=== PATIENT | female | born 1955 | race Caucasian/White ===

== ENCOUNTER 2016-10-10 13:31 | Emergency (ER) | payer OTHER, MEDICAID ==
[2016-10-10 13:36] VITALS: TEMP 98.2
--- NOTE | 2016-10-10 14:01 | EDPHY ---
H & P Stated Complaint: N/V HPI/ROS: HPI CHIEF COMPLAINT: Cough, congestion, upper respiratory tract infection, nausea, vomiting HISTORY OF PRESENT ILLNESS: This patient very pleasant 61-year-old female, significant past medical history for breast cancer status post bilateral mastectomy, lymph node dissection, migraine headaches and depression, presents to the emergency room with 4 days of upper respiratory tract infection type symptoms. She tells me that for 4 days she has had a cough, it has progressively gotten worse with productive sputum yellow green at times. She states she has had chills and a fever yesterday but no recorded temperature. Today she states her coughing got worse and she had a associated nausea and vomiting with this. Denies diarrhea. Denies significant abdominal pain. Past Medical History: Breast cancer, migraine headaches, depression Past Surgical History: Bilateral mastectomy, lymph node dissection Social History: Denies daily use of drugs, alcohol, tobacco products Family History: Noncontributory ROS REVIEW OF SYSTEMS: A comprehensive 10 point review of systems is otherwise negative aside from elements mentioned in the history of present illness. Exam Constitutional triage nursing summary reviewed, vital signs reviewed, awake/ alert. Eyes normal conjunctivae and sclera, EOMI, PERRLA. HENT normal inspection, atraumatic, moist mucus membranes, no epistaxis, neck supple/ no meningismus, no raccoon eyes. Respiratory clear to auscultation bilaterally, normal breath sounds, no respiratory distress, no wheezing. Cardiovascular rate normal, regular rhythm, no murmur, no edema, distal pulses normal. Gastrointestinal soft, non-tender, no rebound, no guarding, normal bowel sounds, no distension, no pulsatile mass. Genitourinary no CVA tenderness. Musculoskeletal no midline vertebral tenderness, full range of motion, no calf swelling, no tenderness of extremities, no meningismus, good pulses, neurovascularly intact. Skin pink, warm, & dry, no rash, skin atraumatic. Neurologic awake, alert and oriented x 3, AAOx3, moves all 4 extremities equally, motor intact, sensory intact, CN II-XII intact, normal cerebellar, normal vision, normal speech. Psychiatric normal mood/affect. Heme/Lymph/Immune no lymphadenopathy. Differential Diagnosis: includes but is not limited to in a particular order upper respiratory tract infection, viral syndrome, pneumonia, bronchitis, electrolyte abnormality, dehydration, influenza Medical Decision Making: this patient had an IV established obtain basic blood work, patient had a two view chest x-ray to rule pneumonia, she will receive a DuoNeb breathing treatment. Check basic blood work. Re-evaluation: ED x-ray chest two view: negative for acute cardiopulmonary disease specifically no pneumonia. Image interpreted by myself. [id number]; re-evaluation at this time: patient is resting comfortably feels much better after DuoNeb breathing treatment, IV fluids. She denies chest pain or shortness of breath or abdominal pain at this time. No vomiting. Vital signs reviewed. Blood work reviewed. X-ray reviewed. She is comfortable being discharged home will place her on a guaifenesin for cough, and the congestion, also albuterol, and azithromycin. She does understand she has worsening symptoms to return to the emergency room. Source: Patient - Personal History Current Tetanus/Diphtheria Vaccine: Yes Current Tetanus Diphtheria and Acellular Pertussis (TDAP): Yes Tetanus Vaccine Date: 2012 - Medical/Surgical History Hx Asthma: Yes Hx Chronic Respiratory Disease: No Hx Diabetes: No Hx Cardiac Disease: No Hx Renal Disease: No Hx Cirrhosis: No Hx Alcoholism: No Hx HIV/AIDS: No Hx Splenectomy or Spleen Trauma: No Other PMH: breast cancer (chemo/radiation), anxiety, bilateral mastectomy, migraines, cholycystectomy, orif ankle, tbi > 10 years , asthma. - Social History Smoking Status: Never smoked Constitutional: Initial Vital Signs Temperature (C) 36.8 C 10/10/16 13:34 Heart Rate 81 10/10/16 13:34 Respiratory Rate 14 10/10/16 13:34 Blood Pressure 136/96 H 10/10/16 13:34 O2 Sat (%) 92 10/10/16 13:34 O2 Delivery Mode Room Air Allergies/Adverse Reactions: latex Allergy (Unknown, Verified 11/22/15 02:25) SKIN BLISTERS AND PEELS OFF POLLENS Allergy (Mild, Uncoded 11/22/15 02:25) WATERY EYES/COUGHING/SNEEZING/NASAL CONGESTION cats Allergy (Uncoded 11/22/15 02:25) EYES WATERY,CONGESTION SMOKE/PAINT FUMES Allergy (Uncoded 11/22/15 02:25) TRIGGERS ASTHMA Home Medications: Medication Instructions Recorded Zolpidem Tartrate [Ambien 10 mg] 10 mg PO HS PRN #5 tab 08/10/13 Albuterol 03/31/14 Albuterol [Proventil Inhaler HFA 2 puffs IH Q4 PRN #1 mdi 03/31/14 (*)] Anastrozole 03/31/14 Prochlorperazine Maleate 10 mg PO BID PRN #10 tablet 10/28/14 [Compazine 10mg (RX)] Effexor 02/20/15 Venlafaxine Xr [Effexor Xr] 75 mg PO DAILY #7 cap 10/02/15 Hydrocodone Bit/Homatropine 1 each PO Q6-8PRN #10 tablet 11/16/15 [HYCODAN TABLET] Hydrocodone Bit/Homatropine 1 each PO Q6-8PRN PRN #11 tablet 11/17/15 [HYCODAN TABLET] predniSONE [prednisone 20mg (RX)] 40 mg PO DAILY 5 Days 11/17/15 AZITHROMYCIN [Z-PACK] 250 mg PO DAILY #6 tab 10/10/16 Albuterol [Proventil Inhaler HFA 1 - 2 puffs IH Q4H #1 mdi 10/10/16 (*)] Guaifenesin [Guaifenesin ER] 600 mg PO BID #14 tab.er.12h 10/10/16 predniSONE 60 mg PO DAILY #15 tab 10/10/16 Medical Decision Making - Data Points Laboratory Results: Laboratory Results 10/10/16 14:12 10/10/16 14:12 10/10/16 14:12 WBC 8.86 10^3/uL (3.80-9.50) RBC 4.63 10^6/uL (4.18-5.33) Hgb 14.9 g/dL (12.6-16.3) Hct 42.3 % (38.0-47.0) MCV 91.4 fL (81.5-99.8) MCH 32.2 pg (27.9-34.1) MCHC 35.2 g/dL (32.4-36.7) RDW 12.7 % (11.5-15.2) Plt Count 297 10^3/uL (150-400) MPV 8.9 fL (8.7-11.7) Neut % (Auto) 67.5 % (39.3-74.2) Lymph % (Auto) 24.6 % (15.0-45.0) Wagoner % (Auto) 5.3 % (4.5-13.0) Eos % (Auto) 1.5 % (0.6-7.6) Baso % (Auto) 0.6 % (0.3-1.7) Nucleat RBC Rel Count 0.0 % (0.0-0.2) Absolute Neuts (auto) 5.99 10^3/uL (1.70-6.50) Absolute Lymphs (auto) 2.18 10^3/uL (1.00-3.00) Absolute Monos (auto) 0.47 10^3/uL (0.30-0.80) Absolute Eos (auto) 0.13 10^3/uL (0.03-0.40) Absolute Basos (auto) 0.05 10^3/uL (0.02-0.10) Absolute Nucleated RBC 0.00 10^3/uL (0-0.01) Immature Gran % 0.5 % (0.0-1.1) Immature Gran # 0.04 10^3/uL (0.00-0.10) Sodium 139 mEq/L (134-144) Potassium 4.4 mEq/L (3.5-5.2) Chloride 100 mEq/L (97-110) Carbon Dioxide 28 mEq/l (22-31) Anion Gap 11 mEq/L (8-16) BUN 16 mg/dL (7-23) Creatinine 0.8 mg/dL (0.6-1.0) Estimated GFR > 60 Glucose 99 mg/dL (70-100) Calcium 9.4 mg/dL (8.5-10.4) Total Bilirubin 0.7 mg/dL (0.1-1.4) Conjugated Bilirubin 0.5 mg/dL (0.0-0.5) Unconjugated Bilirubin 0.2 mg/dL (0.0-1.1) AST 20 IU/L (14-46) ALT 35 IU/L (9-52) Alkaline Phosphatase 96 IU/L (38-126) Total Protein 7.4 g/dL (6.3-8.2) Albumin 4.5 g/dL (3.5-5.0) Lipase 90.0 IU/L (23-300) Medications Given: Discontinued Medications Albuterol/Ipratropium (Duoneb) 3 ml IH EDNOW ONE Stop: 10/10/16 14:08 Last Admin: 10/10/16 14:20 Dose: 3 ml Sodium Chloride (Ns) 1,000 mls @ 0 mls/hr IV ONCE ONE PRN Reason: Wide Open Stop: 10/10/16 14:07 Last Admin: 10/10/16 14:26 Dose: 1,000 mls Ondansetron HCl (Zofran) 4 mg IVP EDNOW ONE Stop: 10/10/16 14:07 Last Admin: 10/10/16 14:26 Dose: 4 mg Departure - Departure Disposition: Home, Routine, Self-Care Clinical Impression: URI (upper respiratory infection) Qualifiers: URI type: unspecified viral URI Qualifier Code: (J06.9) Acute upper respiratory infection, unspecified Condition: Good Instructions: Upper Respiratory Infection (ED) Additional Instructions: 1. Stay well-hydrated 2. Return to the emergency room if you have any worsening symptoms questions or concerns 3. Return emergency room if develops worsening cough, shortness of breath, high fever. Referrals: [place],. [Primary Care Provider] - As per Instructions Prescriptions: Guaifenesin [Guaifenesin ER] 600 mg PO BID #14 tab.er.12h Albuterol [Proventil Inhaler HFA (*)] 1 - 2 puffs IH Q4H #1 mdi AZITHROMYCIN [Z-PACK] 250 mg PO DAILY #6 tab predniSONE 60 mg PO DAILY #15 tab
[2016-10-10] MEDS ORDERED: NS 1,000 ML IV ONE (14:06)
[2016-10-10] MEDS ORDERED: ONDANSETRON 4 MG/2 ML VIAL IVP ONE (14:06)
[2016-10-10] MEDS ORDERED: IPRATROPIUM/ALBUTEROL 3 ML DEYVIAL ONE (14:06)
[2016-10-10] MEDS ORDERED: IPRATROPIUM/ALBUTEROL 3 ML DEYVIAL IH ONE (14:07)
[2016-10-10 14:24] LABS: % IMMATURE GRANULYOCYTES 0.5 % (0.0-1.1); ABSOLUTE IMMATURE GRANULOCYTES 0.04 10^3/uL (0.00-0.10); ADD DIFF? NO; ADD MORPH? NO; ADD SCAN? NO; ATYPICAL LYMPHOCYTE FLAG 20 (0-99); FRAGMENT RBC FLAG 0 (0-99); HEMATOCRIT 42.3 % (38.0-47.0); HEMOGLOBIN 14.9 g/dL (12.6-16.3); LEFT SHIFT FLG 0 (0-99); LIPEMIA HEMOLYSIS FLAG 90 (0-99); MEAN CELL HEMOGLOBIN 32.2 pg (27.9-34.1); MEAN CELL HEMOGLOBIN CONCENTR. 35.2 g/dL (32.4-36.7); MEAN CELL VOLUME 91.4 fL (81.5-99.8); MEAN PLATELET VOLUME 8.9 fL (8.7-11.7); PLATELET CLUMPS FLAG 10 (0-99); PLATELET COUNT 297 10^3/uL (150-400); RED BLOOD CELL COUNT 4.63 10^6/uL (4.18-5.33); RED CELL DISTRIBUTION WIDTH 12.7 % (11.5-15.2)
[2016-10-10 14:38] LABS: ALANINE AMINOTRANSFERASE 35 IU/L (9-52); ALBUMIN 4.5 g/dL (3.5-5.0); ALKALINE PHOSPHATASE 96 IU/L (38-126); ANION GAP 11 mEq/L (8-16); ASPARTATE AMINOTRANSFERASE 20 IU/L (14-46); BILIRUBIN,TOTAL 0.7 mg/dL (0.1-1.4); BILIRUBIN-CONJUGATED 0.5 mg/dL (0.0-0.5); BILIRUBIN-UNCONJUGATED 0.2 mg/dL (0.0-1.1); CALCIUM 9.4 mg/dL (8.5-10.4); CARBON DIOXIDE 28 mEq/l (22-31); CHLORIDE 100 mEq/L (97-110); CREATININE 0.8 mg/dL (0.6-1.0); GLOMERULAR FILTRATION RATE > 60; GLUCOSE 99 mg/dL (70-100); POTASSIUM 4.4 mEq/L (3.5-5.2); SODIUM 139 mEq/L (134-144); TOTAL PROTEIN 7.4 g/dL (6.3-8.2)
--- NOTE | 2016-10-10 15:07 | DX ---
PA and Lateral Chest October 10, 2016 1404 hours Clinical Indications: Abdominal pain, nausea, and vomiting. Comparison: November 2015. Findings: The lungs are clear, and no masses are found. The heart and pulmonary vessels are normal. There are no pleural effusions and no pneumothorax. The bones are unremarkable for this age. Uncha nged clips again are seen in the axilla and in the anterior chest. Surgical clips are noted in the ri ght upper quadrant. Impression: No acute cardiopulmonary process.
[2016-10-10 15:50] VITALS: BP 135/78; PULSE 78; RESP 16; O2SAT 94
== END 2016-10-10 15:49 | disposition home or self-care (01) ==
DX: J06.9 Acute upper respiratory infection, unspecified (principal); J45.909 Unspecified asthma, uncomplicated; Z85.3 Personal history of malignant neoplasm of breast; Z91.040 Latex allergy status
CPT/HCPCS: 71020; 96361; 96374; 99284; J2405

== ENCOUNTER → 2017-02-24 | Outpatient (CLI) | payer OTHER, MEDICAID | LOC: FIMAGING 13:41 | PROVIDERS: ATTEND Internal Medicine Hematology & Oncology | DX: Z13.820 Encounter for screening for osteoporosis (principal); M85.80 Other specified disorders of bone density and structure, unspecified site; Z78.0 Asymptomatic menopausal state; Z85.3 Personal history of malignant neoplasm of breast; Z87.81 Personal history of (healed) traumatic fracture ==

== ENCOUNTER 2017-05-13 19:08 | Emergency (ER) | payer OTHER, MEDICAID ==
[2017-05-13 19:16] VITALS: RESP 16; TEMP 99.1
[2017-05-13] MEDS ORDERED: RANITIDINE 50 MG/2 ML VIAL IVP ONE (19:35)
[2017-05-13] MEDS ORDERED: methylPREDNISolone SOD SUCC 125 MG/2 ML VIAL IVP ONE (19:35)
--- NOTE | 2017-05-13 19:39 | EDPHY ---
H & P Stated Complaint: c/o body wide itching/rash, thinks it could be related to smoking crack Time Seen by Provider: 05/13/17 19:26 HPI/ROS: CHIEF COMPLAINT: Diffuse itching after smoking crack cocaine HISTORY OF PRESENT ILLNESS: 61-year-old female presents to the ER via private vehicle complaining of 2 days of diffuse itching after smoking crack cocaine x2. No chest pain no back pain. No history of kidney disease. no dyspnea. No wheezing. No back pain. No urinary complaints. No dysphagia or odynophagia. PRIMARY CARE PROVIDER: the [facility] REVIEW OF SYSTEMS: A ten point review of systems was performed and is negative with the exception of the items mentioned in the HPI PAST MEDICAL & SURGICAL HISTORY: Breast cancer SOCIAL HISTORY:recent crack cocaine use PHYSICAL EXAM (Prior to examination, patient consented to physical exam, hands were washed and my usual and customary physical exam procedures followed) 1) GENERAL: Well-developed, well-nourished, alert and oriented. Appears to be in no acute distress. 2) HEAD: Normocephalic, atraumatic 3) HEENT: Pupils equal, round, reactive to light bilaterally. Sclera anicteric. No injection Nasopharynx, oropharynx, clear, no lesions. Ears bilaterally with normal tympanic membranes. 4) NECK: Full range of motion, no meningeal signs. 5) LUNGS: Clear auscultation bilaterally, no wheezes, no rhonchi, no retractions. 6) HEART: Regular rate and rhythm, no murmur, no heave, no gallop. 7) ABDOMEN: No guarding, no rebound, no focal tenderness, negative McBurney's, 8) MUSCULOSKELETAL: Moving all extremities, no focal areas of tenderness, no obvious trauma. No peripheral edema or discoloration. 9) BACK: No CVA tenderness, no midline vertebral tenderness, no fluctuance, no step-off, no obvious trauma, no visual or palpable abnormality. 10) SKIN: Diffuse in the patient's chest arms legs she has multiple excoriated areas with no signs of cellulitis or superinfection. No jaundice 11) Psychiatric: Patient is oriented X 3, there is no agitation. DIFFERENTIAL DIAGNOSIS: in no particular order including but not limited to urticaria, elevated blood urea nitrogen, anaphylaxis, Cox-Milton - Personal History Tetanus Vaccine Date: 2012 - Medical/Surgical History Hx Asthma: Yes Hx Chronic Respiratory Disease: No Hx Diabetes: No Hx Cardiac Disease: No Hx Renal Disease: No Hx Cirrhosis: No Hx Alcoholism: No Hx HIV/AIDS: No Hx Splenectomy or Spleen Trauma: No Other PMH: breast cancer (chemo/radiation), anxiety, bilateral mastectomy, migraines, cholycystectomy, orif ankle, tbi > 10 years , asthma. - Social History Smoking Status: Never smoked Constitutional: Initial Vital Signs Temperature (C) 37.3 C 05/13/17 19:12 Heart Rate 75 05/13/17 19:12 Respiratory Rate 16 05/13/17 19:12 Blood Pressure 128/74 H 05/13/17 19:12 O2 Sat (%) 93 05/13/17 19:12 O2 Delivery Mode Room Air Allergies/Adverse Reactions: latex Allergy (Unknown, Verified 05/13/17 19:16) SKIN BLISTERS AND PEELS OFF POLLENS Allergy (Mild, Uncoded 11/22/15 02:25) WATERY EYES/COUGHING/SNEEZING/NASAL CONGESTION cats Allergy (Uncoded 11/22/15 02:25) EYES WATERY,CONGESTION SMOKE/PAINT FUMES Allergy (Uncoded 11/22/15 02:25) TRIGGERS ASTHMA Home Medications: Medication Instructions Recorded Zolpidem Tartrate [Ambien 10 mg] 10 mg PO HS PRN #5 tab 08/10/13 Anastrozole 03/31/14 Effexor 02/20/15 Venlafaxine Xr [Effexor Xr] 75 mg PO DAILY #7 cap 10/02/15 Albuterol [Proventil Inhaler HFA 1 - 2 puffs IH Q4H #1 mdi 10/10/16 (*)] Albuterol [Proventil Inhaler HFA 1 - 2 puffs IH Q4PRN PRN #1 mdi 05/13/17 (*)] predniSONE [Prednisone] 20 mg PO DAILY #9 tablet 05/13/17 Medical Decision Making ED Course/Re-evaluation: Patient has been re-evaluated with serial examinations. Doubt anaphylaxis. Lungs are clear bilaterally. She has normal BUN, normal creatinine, no jaundice. She has had some improvement in symptoms with IV Benadryl, ranitidine , Solu-Medrol. I discussed case with secondary supervising physician Dr. Simmons in the ER. Plan will be discharge home. We discussed supportive therapy such as cool baths, oatmeal soaks and similar. Definitely if she develops new or worsening symptoms to return to ER immediately for re- evaluation. I am starting her on steroids for 3 days. Her lungs are clear bilaterally, maintain normal saturations. Ofe not think that chest imaging currently indicated. Recommend avoiding crack cocaine use in the future. Patient requests also refill of her albuterol meter dose inhaler unrelated to her presenting symptoms - Data Points Laboratory Results: Laboratory Results 05/13/17 19:40 05/13/17 19:40 05/13/17 05/13/17 19:40 19:40 WBC 6.29 10^3/uL 10^3/uL (3.80-9.50) RBC 4.19 10^6/uL 10^6/uL (4.18-5.33) Hgb 13.4 g/dL g/dL (12.6-16.3) Hct 39.0 % % (38.0-47.0) MCV 93.1 fL fL (81.5-99.8) MCH 32.0 pg pg (27.9-34.1) MCHC 34.4 g/dL g/dL (32.4-36.7) RDW 13.2 % % (11.5-15.2) Plt Count 285 10^3/uL 10^3/uL (150-400) MPV 9.7 fL fL (8.7-11.7) Neut % (Auto) 54.3 % % (39.3-74.2) Lymph % (Auto) 31.2 % % (15.0-45.0) Archer % (Auto) 7.6 % % (4.5-13.0) Eos % (Auto) 5.9 % % (0.6-7.6) Baso % (Auto) 0.8 % % (0.3-1.7) Nucleat RBC Rel Count 0.0 % % (0.0-0.2) Absolute Neuts (auto) 3.42 10^3/uL 10^3/uL (1.70-6.50) Absolute Lymphs (auto) 1.96 10^3/uL 10^3/uL (1.00-3.00) Absolute Monos (auto) 0.48 10^3/uL 10^3/uL (0.30-0.80) Absolute Eos (auto) 0.37 10^3/uL 10^3/uL (0.03-0.40) Absolute Basos (auto) 0.05 10^3/uL 10^3/uL (0.02-0.10) Absolute Nucleated RBC 0.00 10^3/uL 10^3/uL (0-0.01) Immature Gran % 0.2 % % (0.0-1.1) Immature Gran # 0.01 10^3/uL 10^3/uL (0.00-0.10) Sodium 141 mEq/L mEq/L (134-144) Potassium 3.3 mEq/L L mEq/L (3.5-5.2) Chloride 103 mEq/L mEq/L (97-110) Carbon Dioxide 25 mEq/l mEq/l (22-31) Anion Gap 13 mEq/L mEq/L (8-16) BUN 14 mg/dL mg/dL (7-23) Creatinine 0.9 mg/dL mg/dL (0.6-1.0) Estimated GFR > 60 Glucose 96 mg/dL mg/dL (70-100) Calcium 9.3 mg/dL mg/dL (8.5-10.4) Medications Given: Discontinued Medications Diphenhydramine HCl (Benadryl Injection) 50 mg IVP EDNOW ONE Stop: 05/13/17 19:36 Last Admin: 05/13/17 19:45 Dose: 25 mg Methylprednisolone Sodium Succinate (Solu-Medrol) 125 mg IVP EDNOW ONE Stop: 05/13/17 19:36 Last Admin: 05/13/17 19:45 Dose: 125 mg Ranitidine HCl (Zantac) 50 mg IVP EDNOW ONE Stop: 05/13/17 19:36 Last Admin: 05/13/17 19:45 Dose: 50 mg Departure - Departure Disposition: Home, Routine, Self-Care Clinical Impression: Urticaria, Itching Condition: Good Instructions: Itchy Skin (ED) Additional Instructions: Please avoid crack cocaine in the future. Call 911 if you develop difficulty breathing, chest pain, worsening symptoms or any other symptoms that concern you. Referrals: [facility] [Other] - 05/15/17 Prescriptions: Albuterol [Proventil Inhaler HFA (*)] 1 - 2 puffs IH Q4PRN PRN #1 mdi PRN Reason: Cough, Moderate predniSONE [Prednisone] 20 mg PO DAILY #9 tablet
[2017-05-13 20:19] LABS: % IMMATURE GRANULYOCYTES 0.2 % (0.0-1.1); ABSOLUTE IMMATURE GRANULOCYTES 0.01 10^3/uL (0.00-0.10); ADD DIFF? NO; ADD MORPH? NO; ADD SCAN? NO; ATYPICAL LYMPHOCYTE FLAG 10 (0-99); FRAGMENT RBC FLAG 0 (0-99); HEMOGLOBIN 13.4 g/dL (12.6-16.3); LEFT SHIFT FLG 0 (0-99); LIPEMIA HEMOLYSIS FLAG 90 (0-99); MEAN CELL HEMOGLOBIN CONCENTR. 34.4 g/dL (32.4-36.7); MEAN CELL VOLUME 93.1 fL (81.5-99.8); MEAN PLATELET VOLUME 9.7 fL (8.7-11.7); PLATELET CLUMPS FLAG 10 (0-99); PLATELET COUNT 285 10^3/uL (150-400); RED BLOOD CELL COUNT 4.19 10^6/uL (4.18-5.33); RED CELL DISTRIBUTION WIDTH 13.2 % (11.5-15.2)
[2017-05-13 20:24] LABS: ANION GAP 13 mEq/L (8-16); CALCIUM 9.3 mg/dL (8.5-10.4); CARBON DIOXIDE 25 mEq/l (22-31); CHLORIDE 103 mEq/L (97-110); CREATININE 0.9 mg/dL (0.6-1.0); GLOMERULAR FILTRATION RATE > 60; GLUCOSE 96 mg/dL (70-100); POTASSIUM 3.3 mEq/L (3.5-5.2); SODIUM 141 mEq/L (134-144)
[2017-05-13 21:37] VITALS: BP 120/69; PULSE 68; O2SAT 92
== END 2017-05-13 21:36 | disposition home or self-care (01) ==
DX: L50.9 Urticaria, unspecified (principal); J45.909 Unspecified asthma, uncomplicated; Z85.3 Personal history of malignant neoplasm of breast; Z91.040 Latex allergy status
CPT/HCPCS: 96374; 96375; 99284; J1200; J2780

== ENCOUNTER 2017-10-04 13:55 | Emergency (ER) | payer OTHER, MEDICAID ==
[2017-10-04 14:13] VITALS: BP 127/80; PULSE 77; RESP 16; TEMP 98.6; O2SAT 93
--- NOTE | 2017-10-04 14:57 | EDPHY ---
H & P Time Seen by Provider: 10/04/17 14:52 HPI/ROS: Chief complaint. Cough, fever HPI. 62-year-old female with 3-4 day history of cough, low-grade fever, achiness. She says her cough is productive yellow sputum. She had diarrhea at onset but this is better. She had decreased appetite but now hungry. She has been eating Cheetos as her 1st meal without nausea or vomiting. No travel or known exposure. She has a history of breast cancer in the past but this is historical there is no recent chemotherapy or radiation. She also has a history of asthma and is out of her inhaler. ROS Constitutional. Fever Eyes. no problems with vision ENT. no sore throat, no nasal drainage Cardiovascular. no chest pain Respiratory. Cough Abdominal. Abdominal pain. Diarrhea at the beginning now resolved. . no problems urinating MS. Achiness Skin. no rash Lymph. no swollen glands Neuro. no headache, no dizziness, no difficulty walking or with speech Past Medical/Surgical History: Asthma, breast cancer, mastectomy, anxiety Social History: Single, nonsmoker, no alcohol Smoking Status: Never smoked Physical Exam: General Appearance: Alert well-developed female mild distress vital signs are stable Eyes: Pupils equal and round no pallor or injection. ENT, tympanic membranes are normal. Pharynx slightly injected without exudate. Mucous membranes are moist. Respiratory: No retractions. Mild inspiratory expiratory rhonchi. Cardiovascular: Regular rate and rhythm. Gastrointestinal: Abdomen is soft and nontender, no masses, bowel sounds normal. Neurological: Awake and alert, sensory and motor exams grossly normal. Skin: Warm and dry, no rashes. Musculoskeletal: Neck is supple nontender. Extremities symmetrical, full range of motion. Psychiatric: Patient is oriented X 3, there is no agitation. Constitutional: Initial Vital Signs Temperature (C) 37 C 10/04/17 14:10 Heart Rate 77 10/04/17 14:10 Respiratory Rate 16 10/04/17 14:10 Blood Pressure 127/80 H 10/04/17 14:10 O2 Sat (%) 93 10/04/17 14:10 O2 Delivery Mode Room Air Allergies/Adverse Reactions: latex Allergy (Unknown, Verified 10/04/17 14:08) SKIN BLISTERS AND PEELS OFF POLLENS Allergy (Mild, Uncoded 10/04/17 14:08) WATERY EYES/COUGHING/SNEEZING/NASAL CONGESTION cats Allergy (Uncoded 10/04/17 14:08) EYES WATERY,CONGESTION SMOKE/PAINT FUMES Allergy (Uncoded 10/04/17 14:08) TRIGGERS ASTHMA Home Medications: Medication Instructions Recorded Zolpidem Tartrate [Ambien 10 mg] 10 mg PO HS PRN #5 tab 08/10/13 Anastrozole 03/31/14 Effexor 02/20/15 Venlafaxine Xr [Effexor Xr] 75 mg PO DAILY #7 cap 10/02/15 Albuterol [Proventil Inhaler HFA 1 - 2 puffs IH Q4PRN PRN #1 mdi 05/13/17 (*)] Albuterol Hfa Anes Only [Proair 2 puffs IH QID PRN #1 mdi 10/04/17 Hfa Icu (*)] Azithromycin [Zithromax] 250 mg PO DAILY #6 tab 10/04/17 Ondansetron Odt [Zofran Odt] 4 mg PO Q4PRN PRN #4 tab 10/04/17 Medical Decision Making Procedures: IV normal saline Flu swab ED Course/Re-evaluation: Flu is negative. On re-evaluation at 3:45 p.m. patient is stable. She requests of breathing treatment. She asked for something for nausea. She is given Zofran. She will be given A DuoNeb updraft. Patient and I discussed lab and imaging results. We discussed treatment plan including criteria for return importance of follow-up further evaluation. She expresses understanding and agreement Differential Diagnosis: I considered influenza, bronchitis, pneumonia - Data Points Laboratory Results: 10/04/17 14:45 Nasal Influenza A PCR NEGATIVE FOR FLU A (NEGATIVE) Nasal Influenza B PCR NEGATIVE FOR FLU B (NEGATIVE) Departure - Departure Disposition: Home, Routine, Self-Care Clinical Impression: Acute bronchitis Qualifiers: Bronchitis organism: unspecified organism Qualified Code(s): J20.9 - Acute bronchitis, unspecified Condition: Good Instructions: Acute Bronchitis (ED) Additional Instructions: Frequent, small sips fluids well nauseated. Zofran if needed for nausea. Gradual diet advancement. Proventil inhaler use 2 puffs with every 4-6 hours to help with cough and breathing. Tylenol 1000 mg every 4-6 hours, ibuprofen 600 mg every 6 hr as needed for fever and achiness. Return for worsening symptoms. Recheck in 2-3 days if not improving Referrals: Zachary So MD [Primary Care Provider] - 2-3 days, if not improved Prescriptions: Albuterol Hfa Anes Only [Proair Hfa Icu (*)] 2 puffs IH QID PRN #1 mdi PRN Reason: Short Of Breath/Dyspnea Azithromycin [Zithromax] 250 mg PO DAILY #6 tab Ondansetron Odt [Zofran Odt] 4 mg PO Q4PRN PRN #4 tab PRN Reason: Nausea/Vomiting, Use 1st
[2017-10-04] MEDS ORDERED: IPRATROPIUM/ALBUTEROL 3 ML DEYVIAL IH ONE (15:57)
[2017-10-04] MEDS ORDERED: ONDANSETRON DISINTEGRATING 4 MG TAB PO ONE (15:57)
== END 2017-10-04 16:34 | disposition home or self-care (01) ==
DX: J20.9 Acute bronchitis, unspecified (principal); J45.909 Unspecified asthma, uncomplicated; Z85.3 Personal history of malignant neoplasm of breast; Z91.040 Latex allergy status

== ENCOUNTER 2018-11-06 13:26 | Emergency (ER) | payer OTHER, MEDICAID ==
[2018-11-06 13:32] VITALS: BP 130/85
--- NOTE | 2018-11-06 13:49 | EDPHY ---
General Time Seen by Provider: 11/06/18 13:49 Narrative: CLINICAL IMPRESSION: Right middle finger crush injury ASSESSMENT/PLAN: Patient is a 63-year-old female with a history of anxiety, depression and narcotic dependence who presents with complaint of right middle finger pain after slamming and a doorjamb. Patient is nontoxic-appearing, she is in no acute distress on arrival. Finger x-rays reveal no acute bony abnormality. There was no evidence of acute fracture, dislocation, nail involvement, compartment syndrome, subungual hematoma or neurovascular compromise. Patient was requesting narcotics, was provided ibuprofen and Tylenol. Her history and physical examination is most consistent with contusion of right middle distal phalanx. The patient was placed in a cage splint for comfort. CMS intact post splint placement. She will otherwise continue Tylenol and ibuprofen. She is well established with PCP and will call to schedule follow- up. Return precautions discussed-patient to return to the emergency Department for significantly worsening or uncontrolled pain, significant swelling, numbness or tingling of the extremity, paleness or coolness of her digits, fever or for any other concerning symptom. The patient verbalizes understanding and she is in agreement with this plan. DIFFERENTIAL DX: Fracture, dislocation, contusion, compartment syndrome ED PROCEDURES: Procedure: Splint placement. A cage finger splint was applied. After application of the splint I returned and re-examined the patient. The splint was adequately immobilizing the joint and distal to the splint the patient's circulation and sensation was intact. ED COURSE: 1356: discussed with Dr. Pickens 1429: X-ray with no acute fracture, on re-evaluation the patient reports she is feeling better. Splint applied for comfort, she will follow up with PCP. CHIEF COMPLAINT: Right middle finger pain HPI: Patient is a 63-year-old female with a history of depression, anxiety and narcotic dependence who presents to the emergency department complaining of right middle finger pain after slamming it in a door jam. Patient reports just for prior to arrival she accidentally slammed her right middle finger in the door while she was at narcotics [employer]. She immediately experienced pain, noted a small blood blister on the distal part of her finger. She has been able to move the finger however it increases her pain. She has not taken anything for pain. She denies any open wounds, numbness or tingling of the digit. She denies any other injury or concern. Upon arrival she is requesting narcotic for pain control. PAST MEDICAL HISTORY: Depression, anxiety, narcotic dependence Family History: Noncontributory Social History: Denies smoking, history of narcotic abuse ROS: A full 10 point review of systems was negative except for those mentioned in HPI. PHYSICAL EXAM: General Appearance: Well-appearing, no acute distress. HEENT: Normocephalic, atraumatic. External ears are normal. Nares are clear. Oropharynx is clear, dentition normal. Eyes: PERRLA, no acute vision change, nystagmus, swelling, discharge, pain or photosensitivity. Conjunctiva pink, no pallor or injection. Neck: Supple, nontender, no lymphadenopathy, no midline pain, FROM, no meningismus. Respiratory: There are no retractions, lungs are clear to auscultation. Cardiac: Regular rate and rhythm, no murmurs or gallops. Gastrointestinal: Abdomen is soft, nontender, bowel sounds normal, no masses/ hernia, no rigidity, guarding or focal peritoneal findings. Skin: Warm, dry, no rashes, no nodules on palpation. Upper Extremities: Right hand with generalized tenderness to the middle distal phalanx, mild associated edema. There is a subcentimeter blood blister on the dorsal aspect proximal to the nail base. There is no evidence of subungual hematoma. The compartment is soft, 2 point discrimination is intact distally. Each interphalangeal joint was tested independently with good strength. Remaining finger nontender, hand and the rest of the right upper extremity is unremarkable. Left upper extremity is unremarkable, full range of motion and nontender. Lower Extremities: Intact distal pulses, No edema, No tenderness, No cyanosis, full range of motion intact, No calf tenderness bilaterally. MEDICAL DECISION MAKING: Patient was seen independently. Secondary supervising physician at time of evaluation was Dr. Pickens, he did not evaluate the patient. Diagnosis: Right middle finger contusion, crush injury. New, requires workup Summary: See Assessment and Plan for summary of ED visit Clinical lab tests: Not applicable. Independent visualization of images, tracing, or specimens: Yes. Decision to obtain medical records or history from someone other than the patient: No Review / Summarize previous medical records: No Discussed patient with another provider: Yes, Dr. Pickens Patient Progress: Stable, discharge. - Diagnostics Imaging Results: Imaging Impressions Finger X-Ray 11/06/18 13:33 Impression: Negative. - History Smoking Status: Never smoked - Objective Vital Signs: Initial Vital Signs Temperature (C) 36.8 C 11/06/18 13:29 Heart Rate 78 11/06/18 13:29 Respiratory Rate 18 11/06/18 13:29 Blood Pressure 130/85 H 11/06/18 13:29 O2 Sat (%) 97 11/06/18 13:29 O2 Delivery Mode Room Air Allergies/Adverse Reactions: latex Allergy (Unknown, Verified 11/06/18 13:32) SKIN BLISTERS AND PEELS OFF POLLENS Allergy (Mild, Uncoded 10/04/17 14:08) WATERY EYES/COUGHING/SNEEZING/NASAL CONGESTION cats Allergy (Uncoded 10/04/17 14:08) EYES WATERY,CONGESTION SMOKE/PAINT FUMES Allergy (Uncoded 10/04/17 14:08) TRIGGERS ASTHMA Home Medications: Medication Instructions Recorded Zolpidem Tartrate [Ambien 10 mg] 10 mg PO HS PRN #5 tab 08/10/13 Anastrozole 03/31/14 Effexor 02/20/15 Venlafaxine Xr [Effexor Xr] 75 mg PO DAILY #7 cap 10/02/15 Albuterol [Proventil Inhaler HFA 1 - 2 puffs IH Q4PRN PRN #1 mdi 05/13/17 (*)] Albuterol Hfa Anes Only [Proair 2 puffs IH QID PRN #1 mdi 10/04/17 Hfa Icu (*)] Medications Given: Discontinued Medications Acetaminophen (Tylenol) 1,000 mg PO EDNOW ONE Stop: 11/06/18 13:55 Last Admin: 11/06/18 14:15 Dose: 1,000 mg Ibuprofen (Motrin) 400 mg PO EDNOW ONE Stop: 11/06/18 13:55 Last Admin: 11/06/18 14:15 Dose: 400 mg Departure - Departure Disposition: Home, Routine, Self-Care Clinical Impression: Contusion Qualifiers: Encounter type: initial encounter Contusion area: finger Finger: middle finger Damage to nail status: without damage Laterality: right Qualified Code(s): S60.031A - Contusion of right middle finger without damage to nail, initial encounter Condition: Good Instructions: Contusion in Adults (ED) Additional Instructions: DISCHARGE INSTRUCTIONS FROM YOUR DOCTOR Thank you for visiting our emergency department today. Please keep in mind that discharge from the emergency department does not mean that there is nothing wrong - it simply means that we have not identified an emergency condition that requires further evaluation or treatment in the hospital. You should always plan to follow up with primary care for re-evaluation of your condition in the next 2-3 days; if you do not have a primary care provider a referral has been provided to you. Rest, ice (on and off), elevate above the level of the heart to decrease pain and swelling. Wear the splint for comfort, you may remove this as needed. For pain, Ibuprofen 400 mg every 6 hours. Do not exceed 2400 mg of ibuprofen in 24 hours. Stop taking this if it upsets her stomach. Tylenol 500 mg every 6 hours. Do not exceed 3000 mg in a 24-hour period. Continue your regular medications as prescribed. Return for increased pain or swelling, numbness, paleness or coolness of the finger or for any worsening or worrisome symptoms. People present with illnesses and injuries in different ways, and it is always possible that we have missed something. You may always return for re-evaluation if symptoms worsen or if they are not improving or if you develop new/different symptoms. Again, thank you for choosing our emergency department. We hope that you feel better. Referrals: Daphney Ndiaye MD [Medical Doctor] - As per Instructions (If you do not have a primary care provider, this is a referral for you to establish care with. )
[2018-11-06] MEDS ORDERED: IBUPROFEN 200 MG TAB PO ONE (13:54)
[2018-11-06] MEDS ORDERED: ACETAMINOPHEN 500 MG TAB PO ONE (13:54)
== END 2018-11-06 14:38 | disposition home or self-care (01) ==
DX: S60.031A Contusion of right middle finger without damage to nail, initial encounter (principal); W23.0XXA Caught, crushed, jammed, or pinched between moving objects, initial encounter; Y92.89 Other specified places as the place of occurrence of the external cause; Y93.9 Activity, unspecified; Y99.9 Unspecified external cause status
CPT/HCPCS: 73140; 99283; L3925